=== PATIENT | female | born 1975 | race Two or more races ===

== ENCOUNTER 2016-11-03 09:26 | Emergency (ER) | payer BC, OTHER ==
--- NOTE | 2016-11-03 09:41 | UCPHY ---
H & P Patient Type: New Chief Complaint Nursing Narrative: increased bleeding with this menstruation since tu/tubal ligation 98 HPI/ROS: Chief complaint: Vaginal bleeding HPI: 41-year-old status post tubal ligation the past presenting with 10 days of vaginal bleeding. States she has had persistent bleeding. His kg passing large clots. Has been soaking up to 10 tampons a day for the last 4 days. Mild abdominal cramping. States that her last couple. Were unusually light. Does not believe she is she has had tubal ligation. Does also notice some lower abdominal bloating for the past several months. She is feeling mildly lightheaded. No syncope. No nausea or vomiting. No fevers or chills. ROS: 10 point Review of Systems is negative except as noted in the HPI. Physical exam: Gen: Awake, Alert, No Distress HEENT: Nose: no rhinorrhea Eyes: PERRLA, EOMI Mouth: Moist mucosa Neck: Supple, no JVD Chest: nontender, lungs clear to auscultation Heart: S1, S2 normal, no murmur Abd: Soft, non-tender, no guarding Back: no CVA tenderness, no midline tenderness Ext: no edema, non-tender Skin: no rash Neuro: CN II-XII intact, Sensation grossly intact, Strength 5/5 in bilateral upper and lower extremities - Personal History LMP (Females 10-55): 1-7 Days Ago Current Tetanus/Diphtheria Vaccine: Unsure - Medical/Surgical History Hx Asthma: No Hx Chronic Respiratory Disease: No Hx Diabetes: No Hx Cardiac Disease: No Hx Renal Disease: No Hx Cirrhosis: No Hx Alcoholism: No Hx HIV/AIDS: No Hx Splenectomy or Spleen Trauma: No Other PMH: choly tubal ligation - Family History Significant Family History: No pertinent family hx - Social History Smoking Status: Current every day smoker Constitutional: Initial Vital Signs Temperature (C) 36.5 C 11/03/16 09:32 Heart Rate 91 11/03/16 09:32 Respiratory Rate 18 11/03/16 09:32 Blood Pressure 125/67 H 11/03/16 09:32 O2 Sat (%) 98 11/03/16 09:32 O2 Delivery Mode Room Air Allergies/Adverse Reactions: No Known Allergies Allergy (Verified 11/03/16 09:32) Home Medications: Medication Instructions Recorded Estradiol/Norethindrone Acet 1 each PO DAILY #7 tablet 11/03/16 [Lopreeza 1 mg-0.5 mg Tablet] Medical Decision Making - Diagnostics Imaging: Pelvic ultrasound, interpreted by Dr. Penn: Impression: 1. Smooth oval hypoechoic lesion within the central aspect of the endometrial canal with internal color flow enhancement suggestive of endometrial polyp versus polypoid submucosal fibroid. 2. Heterogeneous isoechoic to slightly increased echogenicity component to the left side of the uterine body that could represent area of adenomyosis versus atypical fibroid. 3. Small subserosal fibroid posterior uterine body. 4. Hemorrhagic versus involuted follicular cyst left ovary with incidental simple follicular cyst right ovary. ED Course/Re-evaluation: Patient is mildly anemic. She is not . Ultrasound shows some likely fibroids versus adenomyosis. She has an appointment with her OBGYN on the . Will start her on estradiol and norethindrone. She will follow up with her physician as scheduled. Return for any concerns. - Data Points Laboratory Results: Laboratory Results 11/03/16 10:10 11/03/16 10:10 11/03/16 10:10 WBC 6.43 10^3/uL (3.80-9.50) RBC 2.98 L 10^6/uL (4.18-5.33) Hgb 10.2 L g/dL (12.6-16.3) Hct 31.2 L % (38.0-47.0) MCV 104.7 H fL (81.5-99.8) MCH 34.2 H pg (27.9-34.1) MCHC 32.7 g/dL (32.4-36.7) RDW 20.4 H % (11.5-15.2) Plt Count 107 L 10^3/uL (150-400) MPV 10.4 fL (8.7-11.7) Neut % (Auto) 68.9 % (39.3-74.2) Lymph % (Auto) 20.1 % (15.0-45.0) Cobb % (Auto) 6.8 % (4.5-13.0) Eos % (Auto) 2.6 % (0.6-7.6) Baso % (Auto) 1.1 % (0.3-1.7) Nucleat RBC Rel Count 0.0 % (0.0-0.2) Absolute Neuts (auto) 4.43 10^3/uL (1.70-6.50) Absolute Lymphs (auto) 1.29 10^3/uL (1.00-3.00) Absolute Monos (auto) 0.44 10^3/uL (0.30-0.80) Absolute Eos (auto) 0.17 10^3/uL (0.03-0.40) Absolute Basos (auto) 0.07 10^3/uL (0.02-0.10) Absolute Nucleated RBC 0.00 10^3/uL (0-0.01) Immature Gran % 0.5 % (0.0-1.1) Immature Gran # 0.03 10^3/uL (0.00-0.10) Platelet Estimate DECREASED L (ADEQ) Hypochromasia 1+ H Microcytic Cells 1+ H Spherocytes 1+ H Target Cells 1+ H Sodium 141 mEq/L (134-144) Potassium 3.9 mEq/L (3.5-5.2) Chloride 106 mEq/L (97-110) Carbon Dioxide 24 mEq/l (22-31) Anion Gap 11 mEq/L (8-16) BUN 6 L mg/dL (7-23) Creatinine 0.5 L mg/dL (0.6-1.0) Estimated GFR > 60 Glucose 91 mg/dL (70-100) Calcium 8.2 L mg/dL (8.5-10.4) Beta HCG, Qual NEGATIVE Departure - Departure Disposition: Home, Routine, Self-Care Clinical Impression: Abnormal vaginal bleeding Condition: Good Instructions: Dysfunctional Uterine Bleeding (ED) Additional Instructions: Follow-up with your OBGYN doctor as scheduled on the 8th of next month. Take 7 days of the estradiol and norethindrone starting today. Return to Urgent Care the emergency depart for increasing bleeding, pain, lightheadedness, fainting, or any concerns. Referrals: Tiffanie Kruse MD [Primary Care Provider] - As per Instructions Prescriptions: Estradiol/Norethindrone Acet [Lopreeza 1 mg-0.5 mg Tablet] 1 each PO DAILY #7 tablet - PQRS PQRS Measurement: NA
[2016-11-03 10:20] LABS: % IMMATURE GRANULYOCYTES 0.5 % (0.0-1.1); ABSOLUTE IMMATURE GRANULOCYTES 0.03 10^3/uL (0.00-0.10); ADD DIFF? NO; ADD MORPH? YES; ADD SCAN? NO; ATYPICAL LYMPHOCYTE FLAG 10 (0-99); FRAGMENT RBC FLAG 0 (0-99); HEMATOCRIT 31.2 % (38.0-47.0); HEMOGLOBIN 10.2 g/dL (12.6-16.3); LEFT SHIFT FLG 0 (0-99); LIPEMIA HEMOLYSIS FLAG 80 (0-99); MEAN CELL HEMOGLOBIN 34.2 pg (27.9-34.1); MEAN CELL HEMOGLOBIN CONCENTR. 32.7 g/dL (32.4-36.7); MEAN CELL VOLUME 104.7 fL (81.5-99.8); MEAN PLATELET VOLUME 10.4 fL (8.7-11.7); PLATELET CLUMPS FLAG 0 (0-99); PLATELET COUNT 107 10^3/uL (150-400); RED BLOOD CELL COUNT 2.98 10^6/uL (4.18-5.33)
[2016-11-03 10:25] LABS: RED CELL DISTRIBUTION WIDTH 20.4 % (11.5-15.2)
[2016-11-03 10:31] LABS: ANION GAP 11 mEq/L (8-16); CALCIUM 8.2 mg/dL (8.5-10.4); CARBON DIOXIDE 24 mEq/l (22-31); CHLORIDE 106 mEq/L (97-110); CREATININE 0.5 mg/dL (0.6-1.0); GLOMERULAR FILTRATION RATE > 60; GLUCOSE 91 mg/dL (70-100); POTASSIUM 3.9 mEq/L (3.5-5.2); SODIUM 141 mEq/L (134-144)
--- NOTE | 2016-11-03 11:17 | US ---
Pelvic Ultrasound (Transabdominal and Endovaginal) with color flow and spectral Doppler History: Menorrhagia. Findings: The pelvis was first examined through a decompressed bladder from TRANSABDOMINAL approach. UTERUS: Size: 10 x 5.4 x 6 cm in longitudinal, AP, and transverse projections. Orientation: Anteflexed. Uterine Masses: Poorly seen. Endometrium: Not well delineated. ADNEXA: No adnexal masses. The left ovary is grossly normal. The right ovary is not well delineated. The pelvis was then evaluated from ENDOVAGINAL approach after the bladder was emptied to better evalu ate the uterus and adnexa. UTERUS: Orientation: Anteverted. Masses: Along the posterior aspect of the uterine body there is a small subserosal fibroid suspected measuring 1.2 x 1.4 x 1 cm. There is also heterogeneous isoechoic to slightly increased echotexture t o the left lateral margin of the uterine body with the area measuring 3.2 x 3.5 x 5 cm. It is indeter minate if this represents a fibroid versus possibility of extension of the endometrium with adenomyos is. Endometrium: Within the endometrial canal there is a smooth oval isoechoic nodule that measures 2.6 x 2.2 x 1.7 cm that could represent endometrial polyp versus polypoid submucosal extension of uterine fibroid. There is internal color flow enhancement identified. Normal-appearing echogenic endometrium is seen along the periphery of this lesion. The lower uterine segment endometrial stripe is normal in appearance. ADNEXA: Follicular cyst is seen associated with the right ovary as well as a small hemorrhagic or inv oluting follicular cyst left ovary. Right ovary size: 3 x 1.8 x 2.1 cm Left ovary size: 2.8 x 1.9 x 2.4 cm Color flow and spectral Doppler: Normal color flow imaging with normal Doppler waveform bilaterally. Free fluid: There is a small amount of physiologic free fluid in the cul-de-sac. Other findings: None. Impression: 1. Smooth oval hypoechoic lesion within the central aspect of the endometrial canal with internal col or flow enhancement suggestive of endometrial polyp versus polypoid submucosal fibroid. 2. Heterogeneous isoechoic to slightly increased echogenicity component to the left side of the uteri ne body that could represent area of adenomyosis versus atypical fibroid. 3. Small subserosal fibroid posterior uterine body. 4. Hemorrhagic versus involuted follicular cyst left ovary with incidental simple follicular cyst rig ht ovary. Consider hysteroscopy versus sinning enhanced hysterosonography for further characterization of the a abilio findings. Alternatively, pelvic MRI without and with contrast can be utilized. These findings were discussed by telephone with Dr. Rafael Viera at 1115 hrs.
[2016-11-03 11:18] LABS: HYPOCHROMIA 1+; MICROCYTES 1+; PLATELET ESTIMATE DECREASED (ADEQ); SPHEROCYTES 1+; TARGET CELLS 1+
[2016-11-03 11:41] VITALS: BP 119/82; PULSE 94; RESP 16; TEMP 98.6; O2SAT 96
== END 2016-11-03 11:38 | disposition home or self-care (01) ==
LOC: CED 09:26
DX: N92.0 Excessive and frequent menstruation with regular cycle (principal); D25.2 Subserosal leiomyoma of uterus
CPT/HCPCS: 76856-PO; 80048-PO; 84703-PO; 85025-PO; 99204-PO; G0463-PO